=== PATIENT | male | born 1990 | race Two or more races ===

== ENCOUNTER 2017-10-17 00:42 | Emergency (ER) | payer MEDICAID ==
[~2017-10-17] VITALS: Ht 180.3 cm; Wt 156.5 kg
[2017-10-17] MEDS ORDERED: VANCOMYCIN 1G/D5W 200 ML PIGGYBACK IV ONE (01:30)
[2017-10-17] MEDS ORDERED: diphenhydrAMINE 50 MG/1 ML VIAL IV ONE (01:30)
[2017-10-17] MEDS ORDERED: FAMOTIDINE. 20 MG/2 ML VIAL IV ONE ×3 (01:30→01:50)
[2017-10-17] MEDS ORDERED: methylPREDNISolone SOD SUCC 125 MG/2 ML VIAL IV ONE (01:30)
[2017-10-17] MEDS ORDERED: methylPREDNISolone SOD SUCC 125 MG/2 ML VIAL ONE (01:46)
[2017-10-17] MEDS ORDERED: VANCOMYCIN IV 200 ML ONE (01:47)
[2017-10-17] MEDS ORDERED: diphenhydrAMINE 50 MG/1 ML VIAL ONE (01:49)
--- NOTE | 2017-10-17 02:32 | NUR ---
PT IN BED RESTING QUIETLY WATCHING TV. PT'S SPOUSE AT BEDSIDE. PT IS CALM AND COOPERATIVE. PT'S BREATHING IS EVEN AND UNLABORED. NO SIGNS OF DISTRESS WITNESSED AT THIS TIME
--- NOTE | 2017-10-17 03:45 | NUR ---
Note jonathon in EDM - 10/17/17 at 0540 by CHRISTIAN Patient discharged to home in stable conditon. Pt's peripheral IV was removed. Written and verbal after care instructions given. Patient verbalizes understanding of instructions. Patient able to ambulate unassisted with a steady gait. Patient left with all personal belongings.
--- NOTE | 2017-10-17 03:45 | NUR ---
EPI (1:1000) 0.3 INJECTION SUBQ ORDERED BY MD CASTAÑEDA GIVEN BY LEROY WILLIAM. PLEASE SEE DOWNTIME PAPERWORK
[2017-10-17] MEDS ORDERED: EPINEPHRINE 1 MG/1 ML AMP ONE (04:14)
--- NOTE | 2017-10-17 04:38 | NUR ---
Patient discharged to home in stable conditon. Pt's peripheral IV was removed. Written and verbal after care instructions given. Patient verbalizes understanding of instructions. Patient able to ambulate unassisted with a steady gait. Patient left with all personal belongings.
[2017-10-17 05:37] VITALS: BP 138/88
== END 2017-10-17 04:38 | disposition home or self-care (01) ==
LOC: ER 00:46
DX: T78.3XXA Angioneurotic edema, initial encounter (principal)
CPT/HCPCS: A4663; J0171; J1200; J2930; J3370; J3490; J7030

== ENCOUNTER 2018-04-06 13:57 | Emergency (ER) | payer MEDICAID ==
[~2018-04-06] VITALS: Ht 180.3 cm; Wt 156.5 kg
--- NOTE | 2018-04-06 14:15 | NUR ---
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
[2018-04-06] MEDS ORDERED: IBUP-1957 PO (14:17)
[2018-04-06] MEDS ORDERED: LIDOCAINE PATCH (14:17)
[2018-04-06] MEDS ORDERED: ACET-2605 PO (14:17)
--- NOTE | 2018-04-06 15:20 | NUR ---
PATIENT WAS MSE BY DR CASTAÑEDA IN ROOM 05A.
[2018-04-06] MEDS ORDERED: DEXAMETHASONE SOD PHOSPHATE 4 MG INJ IV ONE (15:30)
[2018-04-06] MEDS ORDERED: ONDANSETRON 4 MG/2 ML VIAL IV ONE ×2 (15:30→18:30)
[2018-04-06] MEDS ORDERED: HYDROMORPHONE 1 MG/1 ML DISP.SYRIN IV ONE ×3 (15:30→16:45)
[2018-04-06] MEDS ORDERED: ONDANSETRON 4 MG/2 ML VIAL ONE ×2 (15:40→18:26)
[2018-04-06] MEDS ORDERED: HYDROMORPHONE 1 MG/1 ML DISP.SYRIN ONE ×2 (15:40→16:11)
[2018-04-06] MEDS ORDERED: DEXAMETHASONE SOD PHOSPHATE 10 MG INJ ONE (15:40)
[2018-04-06] MEDS ORDERED: DEXAMETHASONE SOD PHOSPHATE 4 MG INJ ONE (15:41)
[2018-04-06] MEDS ORDERED: HYDROMORPHONE 2 MG/1 ML DISP.SYRIN ONE (16:46)
[2018-04-06] MEDS ORDERED: LIDOCAINE 5% PATCH TD ONE ×2 (17:00→17:13)
--- NOTE | 2018-04-06 18:04 | NUR ---
PATIENT BACK FROM CT.
--- NOTE | 2018-04-06 19:05 | NUR ---
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
[2018-04-06] MEDS ORDERED: KETOROLAC TROMETHAMINE 30 MG INJ IM ONE (19:15)
[2018-04-06] MEDS ORDERED: KETOROLAC TROMETHAMINE 30 MG INJ ONE (19:15)
--- NOTE | 2018-04-06 19:21 | NUR ---
Recieved report from pt. Emeka stable in room
--- NOTE | 2018-04-06 19:39 | NUR ---
Patient discharged to home in stable conditon. Written and verbal after care instructions given. Patient verbalizes understanding of instructions. Pt. d/c per MD orders w/ prescription, instructed not to drive, left w/ all belongings, picked up by Mom in private vehicle, no acute distress,
[2018-04-06 19:42] VITALS: BP 133/92
== END 2018-04-06 19:43 | disposition home or self-care (01) ==
LOC: ER 13:57
DX: M54.5 Low back pain (principal); Z79.1 Long term (current) use of non-steroidal anti-inflammatories (NSAID); Z79.899 Other long term (current) drug therapy
CPT/HCPCS: 72131; 96372; 96374 ×2; 96375; 96376; 99284; J1100; J1170 ×3; J1885; J2405 ×2; A4663